=== PATIENT | female | born 1965 | race Hispanic/Latino ===

== ENCOUNTER 2016-10-27 14:24 | Emergency (ER) | payer OTHER ==
[2016-10-27] MEDS ORDERED: ZESTRIL PO ONE (16:06)
[2016-10-27] MEDS ORDERED: MOTRIN PO ONE (16:06)
[2016-10-27 16:39] VITALS: BP 172/87
== END 2016-10-27 16:56 | disposition home or self-care (01) ==
LOC: ED 14:24
DX: S13.4XXA Sprain of ligaments of cervical spine, initial encounter (principal); I10 Essential (primary) hypertension; E11.9 Type 2 diabetes mellitus without complications; F17.200 Nicotine dependence, unspecified, uncomplicated; Z90.49 Acquired absence of other specified parts of digestive tract; Z98.51 Tubal ligation status; V89.2XXA Person injured in unspecified motor-vehicle accident, traffic, initial encounter; Y93.89 Activity, other specified; Y99.8 Other external cause status; Y92.89 Other specified places as the place of occurrence of the external cause
CPT/HCPCS: 99282